=== PATIENT | male | born 1970 | race Two or more races ===

== ENCOUNTER 2019-07-23 07:20 | Emergency (ER) | payer MEDICAID ==
[~2019-07-23] VITALS: Ht 177.8 cm; Wt 79.4 kg
--- NOTE | 2019-07-23 07:29 | NUR ---
CAME IN FOR LOWER BACK ON AND OFF PAIN x 1 WEEK, AND FEET NUMBNESSC/O LOWER BACK ON AND OFF PAIN x 1 WEEK, AND FEET NUMBNESS. TO ER BED 9, HOOKED TO MONITOR, PROVIDED W WARM BLANKET, DR KING AT BEDSIDE Addendum: 07/23/19 at 0839 by GAYLE CAME IN FOR LOWER BACK ON AND OFF PAIN x 1 WEEK, AND FEET NUMBNESS. TO ER BED 9, HOOKED TO MONITOR, PROVIDED W WARM BLANKET, AWAITING MD FOOTE
--- NOTE | 2019-07-23 07:35 | NUR ---
DR KING AT BEDSIDE
[2019-07-23] MEDS ORDERED: DIAZEPAM 5 MG TABLET ONE ×2 (07:52→08:30)
[2019-07-23] MEDS ORDERED: IBUPROFEN 600 MG TABLET PO ONE ×2 (07:52→08:30)
--- NOTE | 2019-07-23 07:59 | NUR ---
PT IS WHEELED TO CT SCAN.
[2019-07-23] MEDS: IBUPROFEN 600 MG TABLET PO ONE ×2 (08:07→08:30)
[2019-07-23] MEDS: DIAZEPAM 10 MG TABLET PO ONE ×2 (08:07→08:30)
--- NOTE | 2019-07-23 08:20 | NUR ---
VALIUM 5MG AND MOTRIN 600MG FELL TO THE GOUND. TRUE SIFUENTES RN WITNESSED WASTE IN OMNICELL FOR VALIUM 5MG PO.
--- NOTE | 2019-07-23 08:55 | NUR ---
Patient discharged to home in stable condition. Written and verbal after care instructions given. Patient verbalizes understanding of instruction.
[2019-07-23 08:57] VITALS: BP 122/75
== END 2019-07-23 08:57 | disposition home or self-care (01) ==
LOC: ER 07:20
DX: M54.5 Low back pain (principal)
CPT/HCPCS: 72131-TC

== ENCOUNTER 2021-07-09 02:43 | Emergency (ER) | payer MEDICAID ==
[~2021-07-09] VITALS: Ht 175.3 cm; Wt 81.6 kg
[2021-07-09 02:43] VITALS: BP 136/84
--- NOTE | 2021-07-09 03:40 | NUR ---
PT BIBS WITH SON FOR RASH. PT ALERT AND ORIENTED X4. AMBULATORY WITH NON LABORED BREATHING.
[2021-07-09] MEDS ORDERED: HYDR-500 PO (03:42)
[2021-07-09] MEDS ORDERED: diphenhydrAMINE HCL ELIX 25 MG/10 ML UDC ONE (03:45)
--- NOTE | 2021-07-09 03:53 | NUR ---
Patient discharged to home in stable condition. Written and verbal after care instructions given. Patient verbalizes understanding of instruction. RX GIVEN
[2021-07-09] MEDS ORDERED: DIPHENHYDRAMINE HCL 12.5 MG/5 ML UDC PO ONE (04:00)
== END 2021-07-09 03:53 | disposition home or self-care (01) ==
LOC: ER 02:43
DX: L29.9 Pruritus, unspecified (principal)
CPT/HCPCS: 99283; Q0163 ×2

== ENCOUNTER 2021-10-27 19:08 | Emergency (ER) | payer MEDICAID ==
[~2021-10-27] VITALS: Ht 175.3 cm; Wt 95.3 kg
[~2021-10-27 19:08] MED LIST: HYDR-500 PO
--- NOTE | 2021-10-27 19:40 | NUR ---
BIBWIFE C/O BODY RASH, HAD FOR THE PAST FOUR MONTHS WORST TODAY . PT A/OX4. TOLERATING R/A WELL WITH NO SOB.
--- NOTE | 2021-10-27 20:18 | NUR ---
YAIR PT AT PT'S BEDSIDE
[2021-10-27 20:25] VITALS: BP 149/84
[2021-10-27] MEDS ORDERED: diphenhydrAMINE HCL 50 MG CAPSULE PO ONE (20:30)
[2021-10-27] MEDS ORDERED: predniSONE 20 MG TABLET PO ONE (20:30)
[2021-10-27] MEDS ORDERED: PERM60CR6 TP ×2 (20:36→20:37)
[2021-10-27] MEDS ORDERED: PRED20TA PO (20:36)
[2021-10-27] MEDS ORDERED: predniSONE 20 MG TABLET ONE (20:36)
[2021-10-27] MEDS ORDERED: TRIA15OI9 TP (20:36)
[2021-10-27] MEDS ORDERED: diphenhydrAMINE HCL 50 MG CAPSULE ONE (20:37)
--- NOTE | 2021-10-27 21:11 | NUR ---
Patient discharged to home in stable condition. Written and verbal after care instructions given. Patient verbalizes understanding of instruction.
== END 2021-10-27 21:11 | disposition home or self-care (01) ==
LOC: ER 19:16
DX: L30.9 Dermatitis, unspecified (principal); Z60.2 Problems related to living alone; Z79.899 Other long term (current) drug therapy
CPT/HCPCS: 99283; J7512; Q0163